=== PATIENT | male | born 1995 | race American Indian/Alaskan Native ===

== ENCOUNTER 2018-06-07 12:11 | Emergency (ER) | payer OTHER ==
[2018-06-07 12:18] VITALS: BMI 20.5
[2018-06-07 12:19] VITALS: TEMP 98.5; O2SAT 99
[2018-06-07 13:00] LABS: URINE AMORPHOUS SEDIMENT OCC /ul (<OCC); URINE BILIRUBIN NEGATIVE (NEGATIVE); URINE BLOOD NEGATIVE (NEGATIVE); URINE CLARITY Hazy (Clear); URINE COLOR Yellow (YELLOW); URINE GLUCOSE (UA) NORMAL (Normal); URINE PROTEIN NEGATIVE (NEGATIVE)
[2018-06-07 13:02] LABS: URINE LEUKOCYTE ESTERASE 1+ Leu/uL (Negative)
--- NOTE | 2018-06-07 13:25 | C.PDOC ---
History Of Present Illness 22 y/o male with history of Chlamydia presents to ED with c/o penile discharge for 1 day associated with mild burning with urination. Patient states he had chlamydia before after having sexual intercourse with same partner. Patient denies fever, chills, back pain, hematuria or any other complaints at this time. Time Seen by Provider: 06/07/18 12:58 Chief Complaint (Nursing): Male Genitourinary History Per: Patient History/Exam Limitations: no limitations Onset/Duration Of Symptoms: Days Current Symptoms Are (Timing): Still Present Quality Of Discomfort: "Pain" Past Medical History Reviewed: Historical Data, Nursing Documentation, Vital Signs Vital Signs: Last Vital Signs Temp 98.5 F 06/07/18 12:18 Pulse 62 06/07/18 12:18 Resp 18 06/07/18 12:18 BP 118/74 06/07/18 12:18 Pulse Ox 99 06/07/18 12:18 - Medical History PMH: No Chronic Diseases Surgical History: No Surg Hx Family History: States: No Known Family Hx - Social History Hx Alcohol Use: Yes Hx Substance Use: No - Immunization History Hx Tetanus Toxoid Vaccination: No Hx Influenza Vaccination: No Hx Pneumococcal Vaccination: No Review Of Systems Constitutional: Negative for: Fever, Chills Gastrointestinal: Negative for: Nausea, Vomiting Genitourinary: Positive for: Dysuria, Penile Discharge. Negative for: Frequency, Hematuria Musculoskeletal: Negative for: Back Pain Skin: Negative for: Rash Physical Exam - Physical Exam Appears: Non-toxic, No Acute Distress Skin: Warm, Dry, No Rash Head: Atraumatic, Normacephalic Eye(s): bilateral: Normal Inspection Oral Mucosa: Moist Cardiovascular: Rhythm Regular Respiratory: Normal Breath Sounds, No Rales, No Rhonchi, No Wheezing Gastrointestinal/Abdominal: Soft, No Tenderness, No Guarding, No Rebound Back: No CVA Tenderness Neurological/Psych: Oriented x3, Normal Speech, Normal Cognition ED Course And Treatment O2 Sat by Pulse Oximetry: 99 (RA) Pulse Ox Interpretation: Normal Medical Decision Making Medical Decision Making: Treated with Azithromycin and Rocephin, discharged with follow up to PMD in 1-2 days Disposition Counseled Patient/Family Regarding: Diagnosis, Need For Followup, Rx Given - Disposition Referrals: [facility] [Outside] Disposition: HOME/ ROUTINE Disposition Time: 13:24 Condition: STABLE Instructions: Chlamydia (DC) Forms: [facility] (Turkmen), General Discharge Instructions - POA Present On Arrival: None - Clinical Impression Clinical Impression: STD (male) - Scribe Statement The provider has reviewed the documentation as recorded by the Scribhuseyin Sun All medical record entries made by the Scribe were at my direction and personally dictated by me. I have reviewed the chart and agree that the record accurately reflects my personal performance of the history, physical exam, medical decision making, and the department course for this patient. I have also personally directed, reviewed, and agree with the discharge instructions and disposition.
[2018-06-07] MEDS: cefTRIAXone (Rocephin) 250 mg Inj IM STA (13:45)
[2018-06-07 13:57] VITALS: BP 111/69; PULSE 74; RESP 16
== END 2018-06-07 13:57 | disposition home or self-care (01) ==
LOC: C.ER 12:11
DX: A64 Unspecified sexually transmitted disease (principal)
CPT/HCPCS: 81001; 87086; 87491; 87591; 96372; 99283; J0696